=== PATIENT | female | born 1935 | race Caucasian/White ===

== ENCOUNTER → 2016-07-21 08:15 | Outpatient (CLI) | payer MEDICARE ==
[2016-07-21 09:13] LABS: ALBUMIN 3.8 g/dL (3.4-5.0); BILIRUBIN - TOTAL 0.58 mg/dL (0.2-1.3); CALCIUM 9.8 mg/dL (8.5-10.1); CARBON DIOXIDE 28.6 mmol/L (21.0-32.0); CHOL - HDL RATIO 5.8 ratio (2.3-4.1); CREATININE - SERUM 1.2 mg/dL (0.6-1.3); LDL-HDL RATIO 4.4 ratio (1.5-3.5); POTASSIUM - SERUM 4.6 mmol/L (3.5-5.1); PROTEIN - SERUM 7.5 g/dL (6.4-8.2); THYROID STIMULATING HORMONE 1.77 uIU/mL (0.36-3.74)
[2016-07-21 09:15] LABS: BASOPHILS 1.4 % (0.0-2.0); EOSINOPHILS 15.9 % (0-7); HEMATOCRIT 36.3 % (36.0-48.0); HEMOGLOBIN 12.1 g/dL (12-16); IMMATURE GRANULOCYTES 0.2 % (0-5); LYMPHOCYTES 32.3 % (15-50); MCH 31.2 pg (26.0-34.0); MCHC 33.3 g/dL (31.0-37.0); MCV 93.6 fL (80.0-100.0); MEAN PLATELET VOLUME 9.3 fL (7.4-10.4); MONOCYTES 10.2 % (2-11); PLATELET COUNT 329 10x3/uL (130-400); RBC 3.88 10x6/uL (4.00-5.40); RDW 12.7 % (11.5-14.5); WBC 6.3 10x3/uL (4.8-10.8)
== END | disposition home or self-care (01) ==
LOC: D.LAB 08:15
PROVIDERS: Family Medicine
DX: Z00.00 Encounter for general adult medical examination without abnormal findings (principal); E78.5 Hyperlipidemia, unspecified; R06.89 Other abnormalities of breathing

== ENCOUNTER → 2017-07-07 15:46 | Outpatient (CLI) | payer MEDICARE ==
[2017-07-07 16:45] LABS: BASOPHILS 0.5 % (0-2); EOSINOPHILS 3.3 % (0-7); HEMATOCRIT 36.2 % (36.0-48.0); IMMATURE GRANULOCYTES 0.1 % (0-5); LYMPHOCYTES 39.2 % (15-50); MCH 31.2 pg (26.0-34.0); MCHC 33.1 g/dL (31.0-37.0); MEAN PLATELET VOLUME 9.5 fL (7.4-10.4); MONOCYTES 8.8 % (2-11); NEUTROPHILS 48.1 % (40-80); PLATELET COUNT 326 10x3/uL (130-400); RBC 3.85 10x6/uL (4.00-5.40); RDW 13.1 % (11.5-14.5); WBC 8.8 10x3/uL (4.8-10.8)
[2017-07-07 16:56] LABS: BILIRUBIN - TOTAL 0.3 mg/dL (0.2-1.3); CALCIUM 8.9 mg/dL (8.5-10.1); CARBON DIOXIDE 27.1 mmol/L (21.0-32.0); CREATININE - SERUM 1.4 mg/dL (0.6-1.3); POTASSIUM - SERUM 4.1 mmol/L (3.5-5.1); PROTEIN - SERUM 7.8 g/dL (6.4-8.2); THYROID STIMULATING HORMONE 1.78 uIU/mL (0.36-3.74)
== END | disposition home or self-care (01) ==
LOC: D.LAB 15:46
PROVIDERS: Family Medicine
DX: Z00.00 Encounter for general adult medical examination without abnormal findings (principal); E78.5 Hyperlipidemia, unspecified; J44.9 Chronic obstructive pulmonary disease, unspecified; K21.9 Gastro-esophageal reflux disease without esophagitis; G62.9 Polyneuropathy, unspecified; M19.90 Unspecified osteoarthritis, unspecified site

== ENCOUNTER → 2018-03-08 11:31 | Outpatient (CLI) | payer MEDICARE | END | disposition home or self-care (01) | LOC: D.RAD 11:31 | DX: M54.5 Low back pain (principal) ==

== ENCOUNTER → 2018-07-20 10:49 | Outpatient (CLI) | payer MEDICARE ==
[2018-07-20 11:29] LABS: BASOPHILS 0.7 % (0-2); EOSINOPHILS 3.5 % (0-7); HEMATOCRIT 34.7 % (36.0-48.0); HEMOGLOBIN 11.8 g/dL (12-16); IMMATURE GRANULOCYTES 0.3 % (0-5); LYMPHOCYTES 37.6 % (15-50); MCH 31.5 pg (26.0-34.0); MCV 92.5 fL (80.0-100.0); MEAN PLATELET VOLUME 9.2 fL (7.4-10.4); MONOCYTES 11.5 % (2-11); NEUTROPHILS 46.4 % (40-80); PLATELET COUNT 309 10x3/uL (130-400); RBC 3.75 10x6/uL (4.00-5.40); RDW 13.3 % (11.5-14.5); WBC 6.8 10x3/uL (4.8-10.8)
[2018-07-20 12:05] LABS: ALBUMIN 3.8 g/dL (3.4-5.0); ANION GAP 14.5 mmol/L (8-16); BILIRUBIN - TOTAL 0.5 mg/dL (0.2-1.3); CALCIUM 9.2 mg/dL (8.5-10.1); CARBON DIOXIDE 28.1 mmol/L (21.0-32.0); CHOL - HDL RATIO 7.4 ratio (2.3-4.1); CREATININE - SERUM 1.4 mg/dL (0.6-1.3); LDL-HDL RATIO 5.6 ratio (1.5-3.5); POTASSIUM - SERUM 4.6 mmol/L (3.5-5.1); PROTEIN - SERUM 8.2 g/dL (6.4-8.2); THYROID STIMULATING HORMONE 1.57 uIU/mL (0.36-3.74); URIC ACID 6.7 mg/dL (2.6-7.2)
[2018-07-20 12:52] LABS: ERYTHROCYTE SEDIMENTATION RATE 39 mm/hr (0-30)
== END | disposition home or self-care (01) ==
LOC: D.LAB 10:49
PROVIDERS: Family Medicine
DX: Z00.00 Encounter for general adult medical examination without abnormal findings (principal); M19.90 Unspecified osteoarthritis, unspecified site; F34.1 Dysthymic disorder; J44.9 Chronic obstructive pulmonary disease, unspecified; E55.9 Vitamin D deficiency, unspecified; K21.9 Gastro-esophageal reflux disease without esophagitis; G58.9 Mononeuropathy, unspecified; E78.5 Hyperlipidemia, unspecified

== ENCOUNTER → 2020-03-08 09:47 | Outpatient (CLI) | payer MEDICARE ==
[2020-03-08 10:35] LABS: BASOPHILS 0.5 % (0-2); EOSINOPHILS 4.4 % (0-7); HEMATOCRIT 34.4 % (36.0-48.0); HEMOGLOBIN 11.4 g/dL (12-16); IMMATURE GRANULOCYTES 0.1 % (0-5); LYMPHOCYTES 30.4 % (15-50); MCH 30.3 pg (26.0-34.0); MCHC 33.1 g/dL (31.0-37.0); MCV 91.5 fL (80.0-100.0); MONOCYTES 12.7 % (2-11); NEUTROPHILS 51.9 % (40-80); PLATELET COUNT 344 10x3/uL (130-400); RBC 3.76 10x6/uL (4.00-5.40); RDW 14.2 % (11.5-14.5); WBC 8.3 10x3/uL (4.8-10.8)
[2020-03-08 10:45] LABS: EPITHELIAL CELLS 0-5 /hpf (0-5)
[2020-03-08 10:46] LABS: BACTERIA T HPF (NONE SEEN)
[2020-03-08 11:13] LABS: ALBUMIN 3.7 g/dL (3.4-5.0); ANION GAP 11.8 mmol/L (8-16); BILIRUBIN - TOTAL 0.42 mg/dL (0.2-1.3); CALCIUM 9.8 mg/dL (8.5-10.1); CARBON DIOXIDE 26.7 mmol/L (21.0-32.0); CHOL - HDL RATIO 6.8 ratio (2.3-4.1); CREATININE - SERUM 1.5 mg/dL (0.6-1.3); LDL-HDL RATIO 4.9 ratio (1.5-3.5); POTASSIUM - SERUM 4.5 mmol/L (3.5-5.1); PROTEIN - SERUM 8.1 g/dL (6.4-8.2); THYROID STIMULATING HORMONE 1.28 uIU/mL (0.36-3.74)
== END | disposition home or self-care (01) ==
LOC: D.LAB 09:47
PROVIDERS: ATTEND Family Medicine
DX: Z00.00 Encounter for general adult medical examination without abnormal findings (principal); N30.00 Acute cystitis without hematuria; R13.10 Dysphagia, unspecified; M19.90 Unspecified osteoarthritis, unspecified site; J44.9 Chronic obstructive pulmonary disease, unspecified